=== PATIENT | male | born 1970 | race Caucasian/White ===

== ENCOUNTER 2017-12-01 13:03 | Observation (INO) ==
[2017-12-01] MEDS ORDERED: ACETAMINOPHEN 325 MG TABLET PO PRN (15:43)
[2017-12-01] MEDS ORDERED: ONDANSETRON 4 MG/2 ML VIAL IV PRN (15:43)
[2017-12-01] MEDS ORDERED: FUROSEMIDE 40 MG/4 ML VIAL IV SCH (16:30)
[2017-12-01 16:39] LABS: Basophils % 0.3 % (0.0-0.8); Eosinophils % 0.1 % (0.00-10.9); Hematocrit 44.2 VOL% (42.0-52.0); Hemoglobin 15.9 GM/DL (14.0-18.0); Immature Granulocytes % 0.4 %; Immature Granulocytes Absolute 0.04 #; Lymphocytes # 1.2 10*3/uL (1.4-4.0); Lymphocytes % 12.2 % (21.2-54.2); Mean Corpuscular Hemoglobin 32 PG (27-34); Mean Corpuscular Volume 88.4 FL (87-102); Mean Platelet Volume 10.7 FL (9.6-12.0); Monocytes # 0.4 10*3/uL (0.11-0.8); Monocytes % 3.9 % (1.7-12.7); Neutrophils # 8.3 10*3/uL (1.4-7.4); Neutrophils % 83.1 % (38.7-73.9); Platelet Count 276 T/CUMM (130-400); Red Cell Distribution Width 11.9 % (9.3-17.3)
[2017-12-01 16:49] LABS: Calcium 8.6 MG/DL (8.5-10.1)
[2017-12-01 16:53] LABS: Risk Ratio 4.74; VLDL CHOLESTEROL 39.6 MG/DL
[2017-12-01 19:49] LABS: Apearance,Urine CLEAR (Clear); Bilirubin,Urine Negative (Negative); Blood, Urine Negative (Negative); Glucose,Urine (UA) 150 mg/dL (Negative); Ketones,Urine Negative (Negative); Mucus,Urine Occasional /LPF (Occasional); Nitrite,Urine Negative (Negative); Protein,Urine Negative; Urine Color Yellow (Yellow); Urine Specific Gravity 1.011 (1.001-1.035); Urine Urobilinogen < 2.0 EU/DL (0.2-1.0); WBC,Urine 1 /HPF (0-6)
[2017-12-01 19:56] LABS: Barbiturates Screen,Urine Negative (Negative); Benzodiazepines Screen,Urine Positive (Negative); Cannabinoid Screen,Urine Positive (Negative); Opiate Screen,Urine Positive (Negative); Phencyclidine Screen,Urine Negative (Negative)
[2017-12-01] MEDS: CARVEDILOL 6.25 MG TABLET PO SCH (20:41)
[2017-12-01] MEDS: DOCUSATE SODIUM 100 MG CAPSULE PO SCH (20:41)
[2017-12-01] MEDS ORDERED: ENOXAPARIN 40 MG/0.4 ML SYRINGE SUBCUT SCH (21:00)
[2017-12-01] MEDS ORDERED: SIMVASTATIN 40 MG TABLET PO SCH (21:00)
[2017-12-02 05:39] LABS: Basophils % 0.3 % (0.0-0.8); Eosinophils # 0.2 10*3/uL (0.0-0.87); Eosinophils % 1.5 % (0.00-10.9); Hematocrit 45.3 VOL% (42.0-52.0); Immature Granulocytes % 0.3 %; Immature Granulocytes Absolute 0.03 #; Lymphocytes # 2.6 10*3/uL (1.4-4.0); Lymphocytes % 25.7 % (21.2-54.2); Mean Corpuscular HGB Conc 35.8 GM/DL (32-36); Mean Corpuscular Hemoglobin 32 PG (27-34); Mean Corpuscular Volume 88.8 FL (87-102); Monocytes # 0.9 10*3/uL (0.11-0.8); Monocytes % 9.1 % (1.7-12.7); Neutrophils # 6.4 10*3/uL (1.4-7.4); Neutrophils % 63.1 % (38.7-73.9); Platelet Count 290 T/CUMM (130-400); Red Cell Distribution Width 11.9 % (9.3-17.3); White Blood Count 10.2 T/CUMM (4-12)
[2017-12-02 05:42] LABS: Hemoglobin 16.2 GM/DL (14.0-18.0)
[2017-12-02 05:43] LABS: Albumin 3.6 G/DL (3.4-5.0); Bilirubin,Total 0.7 MG/DL (0.2-1.0); Calcium 8.7 MG/DL (8.5-10.1); Osmolality,Calculated 272.8 MOS/KG (273-304); Potassium 3.3 MMOL/L (3.5-5.1); Thyroid Stimulating Hormone 1.42 uIU/ml (0.358-3.74); Total Protein 7.6 G/DL (6.4-8.3)
[2017-12-02] MEDS ORDERED: POTASSIUM CHLORIDE 20 MEQ TABLET PO PRN (07:14)
[2017-12-02] MEDS: CARVEDILOL 6.25 MG TABLET PO SCH (08:46)
[2017-12-02] MEDS: DOCUSATE SODIUM 100 MG CAPSULE PO SCH (08:46)
[2017-12-02] MEDS ORDERED: POTASSIUM CHLORIDE 20 MEQ TABLET PO SCH ×2 (09:00)
[2017-12-02] MEDS ORDERED: ASPIRIN EC 81 MG TABLET PO SCH (09:00)
[2017-12-02] MEDS ORDERED: LISINOPRIL 20 MG TABLET PO SCH (09:00)
[2017-12-02] MEDS ORDERED: SPIRONOLACTONE 25 MG TABLET PO SCH (09:00)
[2017-12-02] MEDS ORDERED: FUROSEMIDE 40 MG TABLET PO SCH (09:00)
[2017-12-02] MEDS ORDERED: PANTOPRAZOLE 40 MG TABLET PO SCH (09:00)
[2017-12-02] MEDS ORDERED: CARVEDILOL 25 MG TABLET PO SCH (11:20)
[2017-12-02] MEDS ORDERED: CARVEDILOL 12.5 MG TABLET PO ONE (11:37)
[2017-12-02 12:11] VITALS: BP 193/132
== END 2017-12-02 14:58 | disposition home or self-care (01) | DRG 305 ==
LOC: SUATTDRO 14:46 → INTOOBSV 14:46 → N.TELEN 14:46
PROVIDERS: ADMIT Internal Medicine; ATTEND Internal Medicine